=== PATIENT | female | born 1995 | race American Indian/Alaskan Native ===

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

== ENCOUNTER 2017-01-12 11:38 | Emergency (ER) | payer MEDICAID, OTHER ==
[2017-01-12 11:48] VITALS: BP 109/69
[2017-01-12 12:17] LABS: Basophils % (Auto) 0.4 % (0.0-1.8); Hematocrit 40.5 % (30.3-42.9); Hemoglobin 13.4 gm/dl (10.1-14.3); Mean Corpuscular HGB Conc 33 % (30-34); Mean Corpuscular Hemoglobin 29 pg (28-32); Mean Corpuscular Volume 88 fl (79-97); Platelet Count 221 K/mm3 (140-440); Red Blood Count 4.63 M/mm3 (3.65-5.03); Red Cell Distribution Width 13.4 % (13.2-15.2); White Blood Count 4.9 K/mm3 (4.5-11.0)
[2017-01-12 12:22] LABS: Bacteria,Urine 1+ /HPF (Negative); Bilirubin,Urine NEG (Negative); Blood,Urine NEG (Negative); Ketones,Urine NEG (Negative); Leukocyte Esterase,Urine NEG (Negative); Mucus,Urine FEW /HPF; Nitrite,Urine NEG (Negative); WBC,Urine < 1.0 /HPF (0.0-6.0)
[2017-01-12 12:27] LABS: Anion Gap 17 mmol/L; Blood Urea Nitrogen 7 mg/dL (7-17); Calcium 9.2 mg/dL (8.4-10.2); Carbon Dioxide 22 mmol/L (22-30); Glucose 80 mg/dL (65-100); Potassium 4.9 mmol/L (3.6-5.0); Sodium 136 mmol/L (137-145)
[2017-01-12] MEDS ORDERED: ZOFRAN IV ONE (13:09)
[2017-01-12] MEDS ORDERED: NACL 0.9% 1000 ML 1,000 ML IV ONE (13:09)
[2017-01-12] MEDS ORDERED: PEPCID IV ONE (13:15)
--- NOTE | 2017-01-12 13:16 | Emergency Department Report ---
HPI - General Chief Complaint: Nausea/Vomiting/Diarrhea Time Seen by Provider: 01/12/17 13:00 - [facility] HPI: Room 9 The patient is a 21-year-old female presenting with a chief complaint of abdominal pain nausea vomiting. 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 The patient states for 2 weeks she has had lower abdominal pain of sharp in nature. The patient states she was seen here 2 weeks ago and diagnosed with UTI. Patient was given a prescription for Zofran and nitrofurantoin but just felt the prescriptions filled 10 days ago. The patient states she's been taking the nitrofurantoin QD instead of twice a day as prescribed. 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 - Surgical History Additional Surgical History: left eye surgery - Family History Family history: no significant - Social History Smoking Status: Never Smoker Substance Use Type: None - Medications Home Medications: Home Medications Medication Instructions Recorded Confirmed Last Taken Type Mupirocin [Bactroban 2%] 1 applic TP BID #1 tube 12/01/16 Unknown Rx Nitrofurantoin [place]/M-Cryst 100 mg PO Q12HR #14 capsule 12/31/16 Unknown Rx [Macrobid CAP] Ondansetron [Zofran Odt] 4 mg PO Q4-6H PRN #20 tab.rapdis 12/31/16 Unknown Rx Metoclopramide [Reglan] 10 mg PO TID PRN #20 tab 01/12/17 Unknown Rx ED Review of Systems ROS: Stated complaint: ABD PAIN (PREG) Other details as noted in HPI Comment: All other systems reviewed and negative Constitutional: denies: chills, fever Eyes: denies: eye pain, eye discharge, vision change ENT: denies: ear pain, throat pain Respiratory: denies: cough, shortness of breath, wheezing Cardiovascular: denies: chest pain, palpitations Endocrine: no symptoms reported Gastrointestinal: abdominal pain, nausea, vomiting Genitourinary: denies: urgency, dysuria, discharge Musculoskeletal: denies: back pain, joint swelling, arthralgia Skin: denies: rash, lesions Neurological: denies: headache, weakness, paresthesias Psychiatric: denies: anxiety, depression Hematological/Lymphatic: denies: easy bleeding, easy bruising Physical Exam - Physical Exam Vital Signs: Vital Signs 01/12/17 01/12/17 11:44 12:57 Temperature 98.3 F Pulse Rate 75 Respiratory 17 18 Rate Blood Pressure 109/69 O2 Sat by Pulse 100 100 Oximetry Physical Exam: GENERAL: The patient is well-developed well-nourished female lying on stretcher not appearing to be in acute distress. [] HEENT: Normocephalic. Atraumatic. NECK: Supple. Trachea midline CHEST/LUNGS: Clear to auscultation. There is no respiratory distress noted. HEART/CARDIOVASCULAR: Regular. There is no tachycardia. There is no gallop rub or murmur. ABDOMEN: Abdomen is soft, with mild discomfort to palpation in the left lower quadrant. Patient has normal bowel sounds. There is no abdominal distention. SKIN: There is no rash. There is no edema. There is no diaphoresis. NEURO: The patient is awake, alert, and oriented. The patient is cooperative. The patient has normal speech MUSCULOSKELETAL: There is no evidence of acute injury. ED Course Vital Signs 01/12/17 01/12/17 11:44 12:57 Temperature 98.3 F Pulse Rate 75 Respiratory 17 18 Rate Blood Pressure 109/69 O2 Sat by Pulse 100 100 Oximetry - Reevaluation(s) Reevaluation #1: 01/12/17 16:01 Patient tolerating po ED Medical Decision Making - Lab Data Result diagrams: 01/12/17 11:55 01/12/17 11:55 Laboratory Tests 01/12/17 01/12/17 01/12/17 11:55 11:55 11:55 WBC 4.9 RBC 4.63 Hgb 13.4 Hct 40.5 MCV 88 MCH 29 MCHC 33 RDW 13.4 Plt Count 221 Lymph % (Auto) 30.8 [place] % (Auto) 6.4 Eos % (Auto) 2.0 Baso % (Auto) 0.4 Lymph # 1.5 [place] # 0.3 Eos # 0.1 Baso # 0.0 Seg Neutrophils % 60.4 Seg Neutrophils # 3.0 Sodium 136 L Potassium 4.9 Chloride 102.0 Carbon Dioxide 22 Anion Gap 17 BUN 7 Creatinine 0.5 L Estimated GFR > 60 BUN/Creatinine Ratio 14.00 Glucose 80 Calcium 9.2 HCG, Quant 599555 H Urine Color Urine Turbidity Urine pH Ur Specific [place] Urine Protein Urine Glucose (UA) Urine Ketones Urine Blood Urine Nitrite Urine Bilirubin Urine Urobilinogen Ur Leukocyte Esterase Urine WBC (Auto) Urine RBC (Auto) U Epithel Cells (Auto) Urine Bacteria (Auto) Urine Mucus 01/12/17 11:56 WBC RBC Hgb Hct MCV MCH MCHC RDW Plt Count Lymph % (Auto) [place] % (Auto) Eos % (Auto) Baso % (Auto) Lymph # [place] # Eos # Baso # Seg Neutrophils % Seg Neutrophils # Sodium Potassium Chloride Carbon Dioxide Anion Gap BUN Creatinine Estimated GFR BUN/Creatinine Ratio Glucose Calcium HCG, Quant Urine Color Yellow Urine Turbidity Cloudy Urine pH 8.0 H Ur Specific [place] 1.020 Urine Protein 30 mg/dl Urine Glucose (UA) Neg Urine Ketones Neg Urine Blood Neg Urine Nitrite Neg Urine Bilirubin Neg Urine Urobilinogen 2.0 Ur Leukocyte Esterase Neg Urine WBC (Auto) < 1.0 Urine RBC (Auto) 3.0 U Epithel Cells (Auto) 4.0 Urine Bacteria (Auto) 1+ Urine Mucus Few - Radiology Data Radiology results: report reviewed (pelvic ultrasound), image reviewed (pelvic ultrasound) Pelvic ultrasound (read by radiologist)-single live intrauterine gestation at approximately 8 weeks 3 days. EDC by ultrasound 08/21/2017. 2.6 cm right ovarian cyst is seen - Differential Diagnosis hyperemesis gravidarum Critical care attestation.: If time is entered above; I have spent that time in minutes in the direct care of this critically ill patient, excluding procedure time. ED Disposition Clinical Impression: Hyperemesis gravidarum, Right ovarian cyst Disposition: TO HOME OR SELFCARE Is pt being admited?: No Does the pt Need Aspirin: No Condition: Stable Instructions: Hyperemesis Gravidarum (ED) Additional Instructions: Return to the emergency department immediately should you develop worsening symptoms, fever, inability to tolerate food or liquid or any other concerns. Prescriptions: Metoclopramide [Reglan] 10 mg PO TID PRN #20 tab PRN Reason: Nausea Referrals: PRIMARY CARE, [Primary Care Provider] - 3-5 Days MICHEL LEMOS MD [Staff Physician] - 3-5 Days (Dr. Lemos is an [employer]PER[employer]. Please follow up with him to be established as a patient) Time of Disposition: 16:01
--- NOTE | 2017-01-12 15:14 | Ultrasound Report ---
FINAL REPORT PROCEDURE: US OB TRANSVAGINAL TECHNIQUE: Real-time transabdominal and transvaginal sonography of the uterus, placenta, amniotic fluid, adnexa, and fetus was performed with image documentation. Measurements were obtained to determine age/size. M-mode Doppler was used to document heartbeat. CPT 39713 and 21029 HISTORY: lower abdominal pain COMPARISON: No prior studies are available for comparison. FINDINGS: ADDITIONAL GESTATION: None. Single live intrauterine is seen with crown-rump length of 1.9 cm, corresponding to 8 weeks 3 days gestational age. Estimated date of delivery based on this measurement is August 21, 2017. heart rate is 164 beats per minute. Yolk sac is seen. Mild free fluid is seen in the cul-de-sac. Right ovary measures 3.7 x 3.7 x 3.0 cm. It contains a 2.6 cm cyst. Left ovary measures 2.2 x 1.3 x 2.4 cm. It has a few follicles. Color Doppler flow is seen in the ovaries. IMPRESSION: 1. Single live intrauterine gestation at approximately 8 weeks 3 days. 2. EDC by US August 21, 2017 3. 2.6 cm right ovarian cyst is seen.
--- NOTE | 2017-01-12 15:15 | Ultrasound Report ---
FINAL REPORT PROCEDURE: US OB \T\lt; = 14 WEEKS FETUS TECHNIQUE: Real-time transabdominal and transvaginal sonography of the uterus, placenta, amniotic fluid, adnexa, and fetus was performed with image documentation. Measurements were obtained to determine age/size. M-mode Doppler was used to document heartbeat. CPT 34068 and 20844 HISTORY: lower abdominal pain COMPARISON: No prior studies are available for comparison. FINDINGS: ADDITIONAL GESTATION: None. Single live intrauterine is seen with crown-rump length of 1.9 cm, corresponding to 8 weeks 3 days gestational age. Estimated date of delivery based on this measurement is August 21, 2017. heart rate is 164 beats per minute. Yolk sac is seen. Mild free fluid is seen in the cul-de-sac. Right ovary measures 3.7 x 3.7 x 3.0 cm. It contains a 2.6 cm cyst. Left ovary measures 2.2 x 1.3 x 2.4 cm. It has a few follicles. Color Doppler flow is seen in the ovaries. IMPRESSION: 1. Single live intrauterine gestation at approximately 8 weeks 3 days. 2. EDC by US August 21, 2017 3. 2.6 cm right ovarian cyst is seen.
== END 2017-01-12 16:30 | disposition home or self-care (01) ==
LOC: ED 11:38
DX: O21.0 Mild hyperemesis gravidarum (principal); O34.81 Maternal care for other abnormalities of pelvic organs, first trimester; Z3A.08 8 weeks gestation of pregnancy; N83.201 Unspecified ovarian cyst, right side
CPT/HCPCS: 36415; 76801; 76817; 80048; 81001; 84702; 85025; 96361; 96374; 99284; J2405; J7030

== ENCOUNTER 2017-05-03 11:46 | Outpatient (CLI) | payer OTHER ==
[2017-05-03 12:42] LABS: Bacteria,Urine 1+ /HPF (Negative); Bilirubin,Urine NEG (Negative); Blood,Urine NEG (Negative); Ketones,Urine NEG (Negative); Leukocyte Esterase,Urine LG (Negative); Mucus,Urine FEW /HPF; Nitrite,Urine NEG (Negative); Protein,Urine <15 mg/dL mg/dL (Negative); Urobilinogen,Urine < 2.0 mg/dL (<2.0)
[2017-05-03] MEDS ORDERED: LACTATED RINGERS 500 ML IV ONE (13:00)
[2017-05-03 13:04] VITALS: BP 106/55
== END 2017-05-03 13:27 | disposition home or self-care (01) ==
LOC: TRG 11:46
PROVIDERS: ATTEND Obstetrics & Gynecology Gynecology
CPT/HCPCS: 81001